=== PATIENT | male | born 1975 ===

== ENCOUNTER → 2023-07-26 | Outpatient (CLI) | payer MEDICAID ==
--- NOTE | 2023-07-26 21:27 | Diagnostic Imaging Report ---
EXAMINATION: Chest 2 view HISTORY: + TB TEST COMPARISON: None available. FINDINGS: The lungs are clear without edema or pneumonia. No pleural effusion or pneumothorax. Heart size is normal. No radiographic evidence of tuberculosis. IMPRESSION: 1. Clear lungs. Dictated by: Dictated on workstation # [id number]
== END ==
LOC: RAD FS 21:13
PROVIDERS: ATTEND Registered Nurse Emergency
DX: Z11.1 Encounter for screening for respiratory tuberculosis (principal)
CPT/HCPCS: 71046